=== PATIENT | female | born 1975 | race Caucasian/White ===

== ENCOUNTER 2018-06-01 13:46 | Emergency (ER) | payer OTHER, MEDICAID, SELFPAY ==
[2018-06-01 13:47] VITALS: BP 141/68; PULSE 76; RESP 18; TEMP 35.6; O2SAT 99; BMI 36.8
--- NOTE | 2018-06-01 14:06 | ED.VISSUMM ---
- ER Visit Summary Date of Service: 06/01/18 Chief Complaint: Bilateral lower quadrant and flank discomfort. History of Present Illness: The patient is a 42 F 3 of prior kidney stones, gestational diabetes but is currently not treated for diabetes and prior UTIs. She states since Tuesday she has had initially left lower quadrant now bilateral lower quadrant discomfort. She denies any nausea, vomiting or diarrhea. Her last menstrual period ended on May 23. She denies any fever. She denies any dysuria. She states she was seen in the urgent care earlier today he did a dip UA which showed blood but they did not feel it was infected and referred to the ER. Physical Examination: Middle-aged female no acute distress. Vital signs are stable and afebrile. H EENT exam unremarkable. Moist weeks membranes. Lungs clear to auscultation bilaterally. Heart regular rhythm no murmur. Abdomen soft. Nondistended. Normal bowel sounds. No peritoneal signs. Only very mild tenderness on both lower quadrants. No McBurney's point tenderness no Lozano sign. No signs of obstruction. No hernias or masses. Back nontender. Neurologically she is awake and alert. No focal motor deficits. She is moving all 4 extremities. Calves are without edema, cords or tenderness. Test Results: CBC normal white count 8. Chemistries normal. Gap of 8. Creatinine 1. UA negative. Serum test negative. CT abdomen and pelvis shows no acute abnormality. Diverticulosis noted. Normal appendix. Left renal calculi but no acute ureteral stones. Read by the radiologist and reviewed by me. Emergency Department Course and Treatment: Middle-aged female with lower quadrant abdominal pain. Multiple repeat exams unchanged. Treatment Plan: Discharged home. Follow-up with a primary care physician. Disposition: dc Impression: Bilateral lower quadrant abdominal pain of uncertain etiology This note was generated with [employer] dictation software. It may contain incorrect words, spelling, and punctuation that were not noted in review of the chart prior to signing ED Disposition - Plan for ED Patient: Chief Complaint: Abd Pain Referrals: Care Physician,No Primary [Primary Care Provider] -
[2018-06-01 14:25] LABS: Absolute Lymphocyte Count 1.88 X10^3/ul (0.83-4.51); Absolute Neutrophil Count 6.1 X10^3/uL (2.0-7.7); Basophil# 0.04 X10^3/uL; Basophil% 0.5 % (0-1); Eosinophil# 0.11 X10^3/uL; Eosinophils% 1.3 % (0-5); Hematocrit 39.2 % (37-47); Hemoglobin 12.9 g/dl (12.0-15.0); Lymphocyte # 1.88 X10^3/ul (4.0); Lymphocyte % 21.9 % (19-41); Mean Corp Hgb Conc 32.9 g/gl (32-36); Mean Corpuscular Hgb 29.1 pg (27.0-32.0); Mean Corpuscular Volume 88.5 fL (81-99); Mean Platelet Vol. 9.3 fl (6.2-12.0); Monocyte# 0.46 X10^3/uL; Monocyte% 5.4 % (0-10); Neutrophil # 6.06 X10^3/uL (2.7-7.7); Neutrophil % 70.6 % (47-70); POSITIVE COUNT NO; POSITIVE DIFFERENTIAL NO; POSITIVE MORPHOLOGY NO; Platelet Count 297 K/mm3 (150-450); RBC Distribution Width CV 13.4 % (11.6-14.6); RBC Distribution Width SD 42.6 fl (35.1-43.9); Red Blood Count 4.43 M/mm3 (4.2-5.4); White Blood Count 8.6 K/mm3 (4.4-11.0)
[2018-06-01 14:34] LABS: Color, Urine Yellow (Yellow); Glucose, Dipstick Normal (Normal); Ketone-Dipstick Negative (Negative); Leukocyte Esterase-Dipstick 25 /ul (Negative); Mucous, Urine 0 SEEN /hpf (<or=2+); Nitrite-Dipstick Negative (Negative); Occult Blood-Urine 10 /ul (Negative); Protein-Dipstick Negative (Negative); Red Blood Cells-Urine 0 SEEN /hpf (0-5); Urine Bilirubin Dipstick Negative (Negative); Urine Clarity Sl. Cloudy (Clear); Urine Urobilinogen 1 mg/dl (Normal)
[2018-06-01 14:37] LABS: Anion Gap 8 (5-15); BUN 11 mg/dL (7-18); BUN/Creat Ratio 10.8 RATIO (10-20); Calcium,Total 8.3 mg/dL (8.5-10.1); Chloride 103 mmol/L (98-107); Creatinine, Serum 1.02 mg/dL (0.55-1.02); EST Glomerular Filtration Rate 64 mL/min (>60); Est Glom Filt Rate - Afr Amer 77 mL/min (>60); Estimated Creatinine Clearance 60.65 ml/min; Glucose 124 mg/dL (74-106); Potassium 3.8 mmol/L (3.5-5.1); Sodium Level 138 mmol/L (136-145)
[2018-06-01 14:40] LABS: Bacteria RARE /hpf (None Seen); Squamous Epithelial Cells - UA 0-5 SEEN /hpf (5-10); White Blood Cells 0-5 SEEN /hpf (0-5)
[2018-06-01 14:42] LABS: Pregnancy, Serum, hCG Quali. NEGATIVE Negative (0-9 Nonpreg)
--- NOTE | 2018-06-01 15:18 | CT_ITS ---
STUDY: CT ABDOMEN AND PELVIS WITH CONTRAST REASON FOR EXAM: Female, 42 years old. Bilateral lower abdominal and back pain. Hematuria. History of kidney stones. RADIATION DOSAGE (If Supplied By Facility): CTDIvol = ( 17.78 ) mGy, DLP = ( 1154.85 ) mGycm TECHNIQUE: Transaxial images were obtained from the dome of the diaphragm to the symphysis pubis without oral contrast. 100mL ml of Isovue 300 contrast was administered. Sagittal and coronal images were reconstructed. Individualized dose optimization techniques were used for this CT. COMPARISON: None. FINDINGS: The visualized lung bases are unremarkable. The visualized portions of the heart are within normal limits. Normal liver. Normal gallbladder and extrahepatic biliary system. Normal spleen. Normal pancreas. Normal bilateral adrenal glands. Normal right kidney. There is a 2 mm nonobstructive calculus in the midpole calyx of the left kidney. 3.2 mm calculus in the lower pole calyx of the left kidney There is a small hiatal hernia. Normal small intestine. There are scattered colonic diverticula consistent with diverticulosis. The appendix is visualized and appears normal. Normal abdominal aorta. Normal inferior vena cava. There is borderline retroperitoneal lymphadenopathy with enlarged nodes no greater than 10mm in the short axis diameter. Normal urinary bladder. Follicles are seen in the left ovary. Normal abdominal wall. There are degenerative changes of the visualized lumbar spine. CT/Abdomen/Pelvis W IV Cont ONLY IMPRESSION: Nonobstructive 2 mm calculus in the midpole calyx of the left kidney as well as a 3.2 mm calculus in the lower pole calyx. Electronically Signed: Jah Reeves MD at 15:55 EST Tel [phone], Service support ,
--- NOTE | 2018-06-01 16:28 | ED.DEP ---
ED Disposition - Plan for ED Patient: Disposition: Home or Assisted Living Chief Complaint: Abd Pain Instructions: ED Abdominal Pain Unkn Cause Referrals: Vu Escobar MD [STAFF PHYSICIAN] - As Needed Additional Instructions: Follow-up with a local primary care physician. All your lab work was normal today including your urinalysis, blood work and CAT scan.
[2018-06-01 16:42] VITALS: BP 108/76; PULSE 72; RESP 16; O2SAT 98
== END 2018-06-01 16:43 | disposition home or self-care (01) ==
PROVIDERS: Emergency Provider Emergency Medicine
DX: R10.31 Right lower quadrant pain (principal); R10.32 Left lower quadrant pain; K57.90 Diverticulosis of intestine, part unspecified, without perforation or abscess without bleeding; N20.0 Calculus of kidney; Z87.442 Personal history of urinary calculi; Z87.440 Personal history of urinary (tract) infections; Z86.32 Personal history of gestational diabetes
CPT/HCPCS: 74177; 80048; 81001; 84703; 85025; 99284; J7030; Q9967; A4216

== ENCOUNTER 2019-05-24 15:15 | Emergency (ER) | payer OTHER, SELFPAY ==
[2019-05-24 15:17] VITALS: BP 153/83; PULSE 81; RESP 16; TEMP 36; O2SAT 100; BMI 35.4
--- NOTE | 2019-05-24 15:33 | RAD_ITS ---
STUDY: X-RAY - UNILATERAL RIBS ( RIGHT ) WITH CHEST REASON FOR EXAM: Female, 43 years old. Anterior rib pain with no history of trauma. TECHNIQUE - RIBS: 3 view(s) of the ribs. TECHNIQUE - CHEST: 1 view COMPARISON: None. FINDINGS - RIBS: Normal visualized ribs without a demonstrated fracture. FINDINGS - CHEST: The lungs are clear and expanded. There is no demonstrated pleural abnormality. Normal size heart. Normal mediastinum and aylin. Normal visualized pulmonary arteries. Normal visualized aortic arch and descending thoracic aorta. Normal visualized thoracic spine. Normal visualized ribs, clavicles, and shoulders. There is no demonstrated abnormality of the visualized soft tissue structures of the upper abdomen. RAD/Ribs Uni Min 3V w/PA Chest IMPRESSION: RIBS: Normal x-ray examination of the ribs. CHEST: Normal x-ray examination of the chest. Electronically Signed: Bethany Marsh MD at 16:54 EST , Service support ,
--- NOTE | 2019-05-24 15:34 | ED.VIS.CHEST ---
History of Present Illness Chief Complaint: Abd Pain Informant: Patient Onset: Weeks - 2 Timing: Intermittent Quality: Dull Location: Right Chest Current Severity: Moderate Maximum Severity: Moderate Worsened By: Movement of Torso - nicolas bending over, Breathing, Coughing Relieved By: Rest - and breathing easy Associated Symptoms: Negative for: Nausea, Vomiting, Diaphoresis, Dyspnea, Cough, Fever, Lightheadedness, Palpitations Narrative: No changes with food. States she feels it is on her right lower chest wall that is sore. Has been off-and-on for the past couple weeks, but for the past several days has been constant discomfort. She has tried some Tylenol without any major difference. She denies any recent travel or surgeries. No history of DVT or PE. No recent leg pain or swelling. No history of clotting disorders in herself or family members that she knows of. No fevers. No recent cough. Cannot recall doing any heavy lifting prior to the onset, or any injuries. 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 Denies any abdominal pain, nausea, vomiting, bright red blood per rectum, melena. She has had no hemoptysis. She is a non-smoker and takes no control pills, or any other medications. Prior Similar Symptoms: No Past Medical History - Allergies and Home Meds Allergies/Adverse Reactions: Allergies iodine Allergy (Verified 06/01/18 13:47) Food Allergy shellfish derived Allergy (Verified 06/01/18 13:47) Hives Primary Care Physician: Donald Medina MD [STAFF PHYSICIAN] - 1 Week if not improving Past Medical History: None Surgical History: - - C-sections, no other surgeries Lives: With Family Smoking Status: Former smoker Drugs: None - Family History Maternal Additional Family History: No known family history of clotting disorders or DVT/PE Review of Systems General: Denies: Chills, Fever, Sweats Eyes: Denies: Visual changes - bilaterally, Diplopia ENT: Denies: Rhinorrhea, Sore throat Cardiovascular: Reports: Chest pain. Denies: Palpitations Respiratory: Denies: Dyspnea, Cough, Dyspnea on exertion Gastrointestinal: Denies: Abdominal pain, Nausea, Vomiting, Diarrhea, Melena, Hematochezia Genitourinary: Denies: Dysuria, Hematuria, Frequency Musculoskeletal: Denies: Back pain, Swelling, Extremity Pain Skin: Denies: Rash, Wounds Neurological: Denies: Headache, Weakness, Numbness Physical Exam Vital Signs/Narrative: Vital Signs Temp Pulse Resp BP Pulse Ox 05/24/19 15:17 96.8 F L 81 16 153/83 H 100 Inital Vital Signs reviewed: Yes General: Well nourished, Well developed, No Acute Distress Head: Normocephalic, Atraumatic Eyes: Perrl, EOMI ENT: Moist mucous membranes, No rhinorrhea Neck: Supple, Nontender Cardiovascular: Regular rate, Regular rhythm, No murmurs Respiratory: No distress, CTA bilaterally, Chest tenderness - right anterior rib approx #7 tender to palp, reproduces the pt's pain; no crepitance. equal BS bilat. Abdomen: Soft, Nontender, Nondistended, Normal bowel sounds, No masses. Negative for: Pulsatile mass, Lozano's sign Back: Nontender, Normal Inspection Extremities: Nontender, No edema. Negative for: Calf Tenderness Skin: Normal color, No rash, No Trauma Neurological: Alert, Oriented x3, Cranial nerves II-XII grossly intact, Normal Strength, Normal Sensation, Normal Gait Psychological: Normal affect, Normal Mood Diagnostic/Tx/Re-eval Impressions Ribs w/Chest X-Ray 05/24/19 15:33 IMPRESSION: RIBS: Normal x-ray examination of the ribs. CHEST: Normal x-ray examination of the chest. Electronically Signed: Bethany Marsh MD at 16:54 EST , Service support , 05/24/19 15:33 Ribs Uni Min 3V w/PA Chest [RAD] Stat Laboratory Results 05/24/19 05/24/19 15:40 15:40 WBC 9.6 RBC 4.95 Hgb 14.4 Hct 43.7 MCV 88.3 MCH 29.1 MCHC 33.0 RDW Std Deviation 43.0 RDW Coeff of Alejandra 13.3 Plt Count 328 MPV 9.4 Immature Gran % (Auto) 0.300 Neut % (Auto) 67.4 Lymph % (Auto) 24.9 Faulkner % (Auto) 4.5 Eos % (Auto) 2.2 Baso % (Auto) 0.7 Absolute Neuts (auto) 6.5 Absolute Lymphs (auto) 2.39 Nucleated RBC % 0 Sodium 138 Potassium 3.9 Chloride 106 Carbon Dioxide 25.0 Anion Gap 7 BUN 16 Creatinine 0.86 Estim Creat Clear Calc 71.21 Est GFR (MDRD) Af Amer 94 Est GFR (MDRD) Non-Af 77 BUN/Creatinine Ratio 18.6 Glucose 132 H Calcium 9.1 Treatment: Toradol IV Repeat Eval: improved - Medical Decision Making PERC score is 0, so I do not think she needs further work-up for PE. Furthermore, her symptoms are reproducible on palpation and more consistent with a chest wall etiology. Chest x-ray and ribs series is unremarkable, rest of her work-up was unremarkable as well. She is better after Toradol. At this time I recommend supportive care with NSAIDs and follow-up, returning if she is dyspneic or she develops other symptoms. She is comfortable with that plan. ED Disposition - Plan for ED Patient: Disposition: Home or Assisted Living Diagnosis: Right-sided chest wall pain Instructions: CHEST WALL PAIN, Costochondritis, Chest Wall Strain Prescriptions: Naproxen [Naprosyn] 500 mg PO BID PRN #20 tab Prescription Printed Referrals: Donald Medina MD [STAFF PHYSICIAN] - 1 Week if not improving
[2019-05-24 15:53] LABS: Absolute Lymphocyte Count 2.39 X10^3/uL (0.83-4.51); Absolute Neutrophil Count 6.5 X10^3/uL (2.0-7.7); Basophil# 0.07 X10^3/uL; Basophil% 0.7 % (0-1); Eosinophil# 0.21 X10^3/uL; Eosinophils% 2.2 % (0-5); Hematocrit 43.7 % (37-47); Hemoglobin 14.4 g/dL (12.0-15.0); Lymphocyte # 2.39 X10^3/ul (4.0); Lymphocyte % 24.9 % (19-41); Mean Corpuscular Hgb 29.1 pg (27.0-32.0); Mean Corpuscular Volume 88.3 fL (81-99); Mean Platelet Vol. 9.4 fl (6.2-12.0); Monocyte# 0.43 X10^3/uL; Monocyte% 4.5 % (0-10); NRBC Flagged by Analyzer 0 % (0-5); Neutrophil # 6.46 X10^3/uL (2.7-7.7); Neutrophil % 67.4 % (47-70); Platelet Count 328 K/mm3 (150-450); RBC Distribution Width CV 13.3 % (11.6-14.6); Red Blood Count 4.95 M/mm3 (4.2-5.4); White Blood Count 9.6 K/mm3 (4.4-11.0)
[2019-05-24 16:08] LABS: Anion Gap 7 (5-15); BUN 16 mg/dL (7-18); BUN/Creat Ratio 18.6 RATIO (10-20); Calcium,Total 9.1 mg/dL (8.5-10.1); Chloride 106 mmol/L (98-107); Creatinine, Serum 0.86 mg/dL (0.55-1.02); EST Glomerular Filtration Rate 77 mL/min (>60); Est Glom Filt Rate - Afr Amer 94 mL/min (>60); Estimated Creatinine Clearance 71.21 ml/min; Glucose 132 mg/dL (74-106); Potassium 3.9 mmol/L (3.5-5.1); Sodium Level 138 mmol/L (136-145)
[2019-05-24] MEDS: Ketorolac 30 MG/ML Syringe IV (16:32)
[2019-05-24 17:32] VITALS: BP 124/74; PULSE 70; RESP 16; O2SAT 100
== END 2019-05-24 17:36 | disposition home or self-care (01) ==
PROVIDERS: Emergency Provider Emergency Medicine
DX: R07.89 Other chest pain (principal); Z87.891 Personal history of nicotine dependence
CPT/HCPCS: 71101; 80048; 85025; 96374; 99283; A4216

== ENCOUNTER 2020-07-26 12:38 | Emergency (ER) | payer MEDICAID, SELFPAY ==
[2020-07-26 12:39] VITALS: BP 121/77; PULSE 89; RESP 18; TEMP 35.9; O2SAT 99; BMI 35.4
--- NOTE | 2020-07-26 13:09 | ED.DCSUM_ITS ---
- ER Visit Summary Date of Service: 07/26/20 Chief Complaint: Right flank pain History of Present Illness: The patient is a 44 F who presents with right flank pain that has been constant for the past week. Patient states the pain is sharp. Patient states the pain is over the right flank and right upper qu adrant. Patient states the pain is worse with movement. Patient denies any nausea or vomiting. Patient denies any diarrhea, melena, or hematochezia. Patient denies any dysuria or hematuria. Patient states her last menstrual period was approximately 3 weeks ago. Patient denies any fevers or chills. Physical Examination: Vital signs are stable. Patient is afebrile. Patient is in no acute distress. Oral mucosa is pink and moist. Neck is supple. Trachea is midline. There is no JVD noted. Heart was regular rate and rhythm. Lungs are clear and equal bilaterally. Abdomen is soft. Bowel sounds are normal. There is mild right upper quadrant and right CVA tenderness. There is no rebound or guarding noted. Skin is warm dry. Cranial nerves II through XII are intact. There are no focal motor or sensory deficits noted. Extremities are intact. There is no calf tenderness or edema. Test Results: CBC was within normal limits. Comprehensive metabolic profile showed an elevated glucose of 282. The remainder was within normal limits. Urinalysis shows glucose was 1000. There is no evidence of urinary tract infection. Serum hCG was negative. CT scan of the abdomen and pelvis was obtained. There is no ureteral calculus noted. There is no acute process. This was interpreted by the radiologist and reviewed by myself. Emergency Department Course and Treatment: Patient was given IV fluids, morphine, and Zofran. Patient was advised of her findings. Patient was instructed to monitor her sugars. Patient was instructed to follow-up with her primary care physician in 3 to 5 days. Patient was advised that she may need to be started on oral hypoglycemics but this will be up to her primary care physician. Patient understood and was agreeable with the plan. All questions were answered. Disposition: Discharge home Impression: Diabetes This note was generated with [employer]ation software. It may contain incorrect words, spelling, and punctuation that were not noted in review of the chart prior to signing ED Disposition - Plan for ED Patient: Disposition: Home or Assisted Living Diagnosis: Hyperglycemia due to diabetes mellitus Instructions: ED Diet: Diabetes, ED Diabetes- Overview Referrals: Edmundo Kendall MD [STAFF PHYSICIAN] - 3-5 Days
[2020-07-26 13:13] LABS: Absolute Lymphocyte Count 2.32 X10^3/uL (0.83-4.51); Absolute Neutrophil Count 5.3 X10^3/uL (2.0-7.7); Basophil# 0.04 X10^3/uL; Basophil% 0.5 % (0-1); Eosinophil# 0.14 X10^3/uL; Eosinophils% 1.7 % (0-5); Hemoglobin 13.9 g/dL (12.0-15.0); Lymphocyte # 2.32 X10^3/ul (4.0); Lymphocyte % 27.9 % (19-41); Mean Corp Hgb Conc 32.3 g/dL (32-36); Mean Corpuscular Volume 86.5 fL (81-99); Mean Platelet Vol. 9.4 fl (6.2-12.0); Monocyte# 0.47 X10^3/uL; Monocyte% 5.7 % (0-10); NRBC Flagged by Analyzer 0 % (0-5); Neutrophil # 5.31 X10^3/uL (2.7-7.7); Neutrophil % 63.8 % (47-70); Platelet Count 316 K/mm3 (150-450); RBC Distribution Width SD 40.9 fl (35.1-43.9); Red Blood Count 4.97 M/mm3 (4.2-5.4); White Blood Count 8.3 K/mm3 (4.4-11.0)
[2020-07-26 13:27] LABS: ALB/GLOB Ratio 1.1 RATIO (0.9-2.4); AST(SGOT) 11 U/L (15-37); Alanine Aminotransfer ALT/SGPT 18 U/L (13-56); Albumin, Serum 3.7 g/dL (3.2-5.0); Alkaline Phosphatase 132 U/L (45-117); Anion Gap 6 (5-15); BUN 12 mg/dL (7-18); BUN/Creat Ratio 11.9 RATIO (10-20); Calcium,Total 8.6 mg/dL (8.5-10.1); Chloride 104 mmol/L (98-107); Creatinine, Serum 1.01 mg/dL (0.55-1.02); EST Glomerular Filtration Rate 64 mL/min (>60); Est Glom Filt Rate - Afr Amer 77 mL/min (>60); Estimated Creatinine Clearance 60.02 ml/min; Globulin 3.5 g/dL (2.2-4.2); Glucose 282 mg/dL (74-106); Lipase 126 U/L (73-393); Protein, Total 7.2 g/dL (6.4-8.2); Sodium Level 135 mmol/L (136-145)
[2020-07-26 13:28] LABS: Color, Urine Yellow (Yellow); Glucose, Dipstick 1000 mg/dl (Normal); Ketone-Dipstick 5 mg/dl (Negative); Leukocyte Esterase-Dipstick Negative /ul (Negative); Nitrite-Dipstick Negative (Negative); Occult Blood-Urine Negative /ul (Negative); Protein-Dipstick Negative (Negative); Specific Gravity, Urine 1.025 (1.002-1.030); Urine Bilirubin Dipstick Negative (Negative); Urine Clarity Sl. Cloudy (Clear); Urine Urobilinogen Normal (Normal)
[2020-07-26 13:29] LABS: Bacteria 0 SEEN /hpf (None Seen); Mucous, Urine 0 SEEN /hpf (<or=2+); Red Blood Cells-Urine 0 SEEN /hpf (0-5); White Blood Cells 0 SEEN /hpf (0-5)
[2020-07-26 13:33] LABS: Squamous Epithelial Cells - UA 0-5 SEEN /hpf (5-10)
[2020-07-26 13:42] LABS: Internal QC Validated? YES +Cl - CLEAR BKGD
[2020-07-26 13:43] LABS: Pregnancy, Serum, hCG Quali. NEGATIVE Negative
[2020-07-26] MEDS: 0.9% Normal Saline 1,000 ML 1000 ML IV (13:57)
[2020-07-26] MEDS: Morphine 4 MG/ML Syringe IV (13:57)
[2020-07-26] MEDS: Ondansetron 4 MG/2 ML Vial IV (13:58)
--- NOTE | 2020-07-26 14:04 | CT_ITS ---
STUDY: CT ABDOMEN AND PELVIS WITHOUT CONTRAST REASON FOR EXAM: Female, 44 years old. RIGHT SIDED ABDOMINAL PAIN X 1 WEEK RADIATION DOSAGE (If Supplied By Facility): CTDIvol = ( 17.59 ) mGy, DLP = ( 940.65 ) mGycm TECHNIQUE: Transaxial images were obtained from the dome of the diaphragm to the symphysis pubis without oral contrast, and without intravenous contrast. Sagittal and coronal images were reconstructed. Individualized dose optimization techniques were used for this CT. COMPARISON: 06/01/2018 FINDINGS: The visualized lung bases are unremarkable. The visualized portions of the heart are within normal limits. Normal liver. The gallbladder is contracted. Normal spleen. Normal pancreas. Normal bilateral adrenal glands. No hydronephrosis. Nonobstructing punctate calculus of the left kidney on image 63 of series 2 is stable. Normal visualized stomach. Normal small intestine. Normal colon. The appendix is visualized and appears normal. Normal abdominal aorta. Normal inferior vena cava. Normal retroperitoneum. Normal urinary bladder. There are follicles of the right ovary. No pelvic free fluid or inflammation. Normal abdominal wall. Stable degenerative changes of the lumbar spine. CT/Abdomen/Pelvis without Cont IMPRESSION: No hydronephrosis or ureteral calculi. Stable punctate left renal calculus. Electronically Signed: Olaf Mojica MD ([place]) at 14:31 EST , Service support ,
[2020-07-26 15:16] VITALS: BP 128/62; PULSE 84; RESP 16; O2SAT 99
== END 2020-07-26 15:18 | disposition home or self-care (01) ==
PROVIDERS: Emergency Provider Emergency Medicine
DX: R10.11 Right upper quadrant pain (principal); E11.65 Type 2 diabetes mellitus with hyperglycemia
CPT/HCPCS: 74176; 80048; 80053; 81001; 83690; 84703; 85025; 96361; 96374; 96375; 99283; J7030; J2405

== ENCOUNTER 2021-01-15 12:40 | Emergency (ER) | payer MEDICAID, SELFPAY ==
[2021-01-15 12:40] VITALS: BP 123/78; PULSE 76; RESP 14; TEMP 36.6; O2SAT 100; BMI 35.1
--- NOTE | 2021-01-15 13:18 | RAD_ITS ---
STUDY: X-RAY - LEFT SHOULDER REASON FOR EXAM: Left shoulder pain for months, no specific injury. TECHNIQUE: 4 view(s) of the shoulder. COMPARISON: None. FINDINGS: Normal glenohumeral articulation. There is mild acromioclavicular arthrosis. Normal acromion. There are 2 small radiolucencies in the scapula representing incidental suprascapular foramina. Normal humeral head and visualized proximal humerus. The soft tissue structures are unremarkable. Normal visualized pulmonary apex. RAD/Shoulder min 2 Views IMPRESSION: Mild acromioclavicular arthrosis. Electronically Signed: Devonte Pedraza MD at 13:55 EDT Tel , Service support ,
--- NOTE | 2021-01-15 13:18 | EX.ED.UPPERE ---
HPI History of Present Illness Chief Complaint: Upper Extremity Injury Detail of Chief Complaint: Atraumatic left shoulder pain. 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 Says has been quite busy lately. For last month she has had aching in her left shoulder. Worse and constant over the last week. Worse with movement. Denies any trauma. No prior shoulder surgery. She is right-hand dominant and this is her left shoulder. She denies any fever, chills, redness or swelling. Prior similar symptoms: Yes Recent Illness/Hospitalization: No PFSH PFSH Medical History Diabetes Home Medications metaxalone [Skelaxin] 800 mg PO TID PRN 7 Days #20 tab 01/15/21 [Rx Last Taken Unknown] Allergy/AdvReac Type Severity Reaction Status Date / Time iodine Allergy Food Verified 01/15/21 12:42 Allergy shellfish derived Allergy Hives Verified 01/15/21 12:42 Social History Smoking Status: Never smoker ROS ROS ED ROS Narrative Denies any recent illness. Review of Systems ROS Unobtainable: Denies due to encephalopathy Constitutional Constitutional ED: Denies chills or frequent falls Eyes Eyes: Denies change in vision ENT ENT ED: Denies ear pain or sore throat Cardiovascular Cardiovascular: Denies chest pain Respiratory/Chest Respiratory/Chest: Denies cough or dyspnea Gastrointestinal Gastrointestinal: Denies abdominal pain, constipation, diarrhea, nausea or vomiting Genitourinary Genitourinary ED: Denies dysuria or hematuria Musculoskeletal Musculoskeletal: Reports back pain and neck pain; Denies myalgias Integumentary Denies rash Neurologic Neurologic: Denies headache(s) Psychiatric Psychiatric: Denies depression Endocrine Endocrinology: Denies polyuria Hematologic/Lymphatic Hematologic/Lymphatic: Denies easy bruising Allergic/Immunologic Allergic/Immunologic ED: Denies urticaria EXAM Physical Exam Narrative Exam Narrative: Middle-aged female no acute distress. Vital signs stable afebrile. Has tenderness of the soft tissue around the left shoulder. Upper back and lateral left neck. Consistent with myofascial strain. There is no redness or warmth. She has AB and adduction of the shoulder internal and external rotation and flexion extension. No bony deformity. No signs of infection. Const Vital Signs: 01/15/21 12:40 Temperature 97.9 F Temperature Source Temporal Pulse Rate 76 Respiratory Rate 14 Blood Pressure 123/78 H Blood Pressure Mean 93 Pulse Ox 100 Oxygen Delivery Method Room Air Positive well nourished and well developed General Appearance ED: well developed HEENT Denies moist mucous membranes normocephalic and atraumatic; Negative for trauma or tenderness Eyes PERRL and EOMs intact bilaterally Neck full ROM and supple General: tenderness Chest Wall inspection of chest normal and palpation of chest normal Resp normal respiratory effort and clear to auscultation bilaterally Cardio regular rate, regular rhythm, S1 normal heart sound, S2 normal heart sound and no murmurs Rate: Negative for bradycardia or tachycardic GI non-tender and non-distended Auscultation: normoactive bowel sounds Palpation: soft; Negative for tender or guarding Back/Spine no CVA tenderness Cervical Spine: Negative for cervical spine tenderness Thoracic Spine / Upper Back: Negative for thoracic spinal tenderness Extremity normal to inspection and full ROM Extremity Narrative: Tenderness and soft tissue left shoulder consistent myofascial strain. Normal range of motion. No signs of rotator cuff tear. No swelling or redness. No bony deformity. General Extremety ED: Negative for edema General Extremity: Negative for edema Neuro oriented x3 and CN's II-XII intact bilaterally Sensorium / Orientation: alert, oriented to person and oriented to place Motor Exam: strength 5/5 throughout Psych mental status grossly normal Skin Rashes: no rashes MDM MDM MDM Narrative Medical decision making narrative: History and exam are consistent with myofascial strain with her type of work and overuse. She did not waiting for pain. X-ray being obtained. She will be treated with muscle relaxants and anti-inflammatories if she is amenable with that plan. History and exam are consistent with myofascial strain. X-rays basically unremarkable. Patiently placed on anti-inflammatories and muscle relaxant. Radiography Diagnostic Testing: Left shoulder x-ray 2 views interpreted by myself and the radiologist shows chronic changes no acute process. Mild acromioclavicular arthrosis per the radiologist. No significant degenerative changes. I did go over the x-ray with the patient. Discharge Plan Triage Chief Complaint: Upper Extremity Injury ED Provider: Sebastián Watkins Dx/Rx/DC Orders Clinical Impression: Muscle strain of left shoulder Instructions: ED Muscle Strain, Extremity Prescriptions: New metaxalone [Skelaxin] 800 mg tablet 800 mg PO TID PRN (Reason: muscle pain) 7 Days Qty: 20 RF: 0 Primary Care Provider: Care Physician,No Primary Referrals: Vu Escobar MD [STAFF PHYSICIAN] - 1 Week if not improving Care Physician,No Primary [Primary Care Provider] - Activity Restrictions/Additional Instructions: You have mild muscle strain of your shoulder and back due to overuse due to your work. Motrin for pain and inflammation or naproxen. Hot shower to relax the muscles warm bath and massage. Ice to decrease inflammation. Skelaxin as needed for muscle relaxation. Tell the pharmacy to fill the generic version of the tendon to be much cheaper. Disposition Disposition: Home, Self Care
[2021-01-15 14:43] VITALS: RESP 16
== END 2021-01-15 14:43 | disposition home or self-care (01) ==
PROVIDERS: Emergency Provider Emergency Medicine
DX: S46.912A Strain of unspecified muscle, fascia and tendon at shoulder and upper arm level, left arm, initial encounter (principal); M19.012 Primary osteoarthritis, left shoulder; X58.XXXA Exposure to other specified factors, initial encounter; Y93.9 Activity, unspecified; Y92.9 Unspecified place or not applicable; Y99.9 Unspecified external cause status; E11.9 Type 2 diabetes mellitus without complications
CPT/HCPCS: 73030; 99282

== ENCOUNTER 2021-06-22 15:37 | Emergency (ER) | payer MEDICAID, SELFPAY ==
[2021-06-22 15:37] VITALS: BP 126/75; PULSE 86; RESP 18; TEMP 35.9; O2SAT 99; BMI 33.6
--- NOTE | 2021-06-22 16:55 | EX.ED.DYSGE1 ---
HPI History of Present Illness Chief Complaint: Flank Pain Informant: patient Narrative Narrative: Patient's been having left flank pain off and on for at least a couple weeks. But it seems to have increased in the last few days. It is somewhat motion related down by her left buttock and hip. But it also comes and goes without motion. She states it seems to be moving up. But she has no cough or shortness of breath. Mostly his left flank and wraps around to the left groin. This is typical when she has had either UTIs or kidney stones. Her urine was a little darker and she is going slightly more frequent but there is no dysuria. She has had no fevers or chills. She has had nausea when the pain increases but not at other times. She has been eating and drinking fine. Past medical history includes kidney stones and recent diagnosis of hyperglycemia. She has not yet been able to follow-up with a physician to get medicine or evaluations. No chronic medications Allergy to iodine and shellfish No recent surgeries Non-smoker [facility] Medical History Diabetes Home Medications metaxalone [Skelaxin] 800 mg PO TID PRN 7 Days #20 tab 01/15/21 [Rx Last Taken Unknown] naproxen 500 mg PO BID #14 tab 06/22/21 [Rx Last Taken Unknown] Allergy/AdvReac Type Severity Reaction Status Date / Time iodine Allergy Food Verified 06/22/21 15:39 Allergy shellfish derived Allergy Hives Verified 06/22/21 15:39 Social History Smoking Status: Never smoker ROS [facility] ED Constitutional Constitutional ED: Denies chills or fever(s) Eyes Eyes: Denies change in vision ENT ENT ED: Denies rhinorrhea Cardiovascular Cardiovascular: Denies chest pain Respiratory/Chest Respiratory/Chest: Denies cough, dyspnea, dyspnea on exertion or sputum Gastrointestinal Gastrointestinal: Reports abdominal pain and nausea; Denies vomiting Genitourinary Genitourinary ED: Reports urinary frequency and other Details: See history of present illness. ; Denies dysuria or hematuria Musculoskeletal Musculoskeletal: Reports back pain Integumentary Denies rash Neurologic Neurologic: Denies headache(s), paresthesias or weakness Endocrine Endocrinology: Reports other Details: Denies polyuria, polydipsia or blurry vision. ; Denies polydipsia or polyuria Allergic/Immunologic Allergic/Immunologic ED: Denies mouth swelling or urticaria EXAM Physical Exam Const Vital Signs: 06/22/21 15:37 06/22/21 17:16 Temperature 96.7 F L Temperature Source Temporal Pulse Rate 86 Respiratory Rate 18 Respiratory Effort Normal Respiratory Pattern Normal Blood Pressure 126/75 H Blood Pressure Mean 92 Pulse Ox 99 Oxygen Delivery Method Room Air Positive well nourished and well developed General Appearance ED: well developed and NAD HEENT Reports moist mucous membranes Eyes General Eye ED: Yes pale conjunctiva Neck no lymphadenopathy Chest Wall inspection of chest normal Resp normal respiratory effort and clear to auscultation bilaterally Effort and Inspection: Negative for pain with movement Auscultation: Negative for rales, rhonchi or wheezes Cardio regular rate and regular rhythm GI normal to inspection, nondistended, normoactive bowel sounds, non-tender and non-distended Palpation: soft Back/Spine Back/Spine Narrative: Very mild left CVA tenderness. But she also has some tenderness in the left paraspinals with soft palpation. Extremity normal to inspection General Extremety ED: Negative for edema or tenderness General Extremity: Negative for edema Neuro oriented x3 Sensorium / Orientation: alert Psych mental status grossly normal Skin no rashes or lesions noted MDM MDM MDM Narrative Medical decision making narrative: Patient CT shows no acute process. Her CBC, electrolytes and urine were normal. Glucose was minimally elevated at 169 but this is less than her last visit. I do not think this requires acute treatment. It does need follow-up. Patient does have significant musculoskeletal component. We will write for nonsteroidals. We discussed reasons to return that include worsening pain, vomiting, fevers or other concerns. Lab Data Attestation: I reviewed the patient's lab results. Labs: Laboratory Results - last 24 hr 06/22/21 06/22/21 06/22/21 16:28 16:28 17:16 WBC 7.7 RBC 4.72 Hgb 13.7 Hct 41.7 MCV 88.3 MCH 29.0 MCHC 32.9 RDW Std Deviation 42.1 RDW Coeff of Alejandra 12.9 Plt Count 325 MPV 9.7 Immature Gran % (Auto) 0.400 Neut % (Auto) 53.7 Lymph % (Auto) 36.7 [place] % (Auto) 5.5 Eos % (Auto) 2.9 Baso % (Auto) 0.8 Absolute Neuts (auto) 4.1 Absolute Lymphs (auto) 2.81 Nucleated RBC % 0 Sodium 138 Potassium 3.7 Chloride 104 Carbon Dioxide 27.0 Anion Gap 7 BUN 15 Creatinine 0.78 Estim Creat Clear Calc 76.93 Est GFR (MDRD) Af Amer 103 Est GFR (MDRD) Non-Af 85 BUN/Creatinine Ratio 19.1 Glucose 169 H Calcium 9.4 Urine Color Yellow Urine Clarity Clear Urine pH 5.0 Ur Specific [place] 1.025 Urine Protein 15 H Urine Glucose (UA) 50 H Urine Ketones 50 H Urine Occult Blood Negative Urine Nitrite Negative Urine Bilirubin Negative Urine Urobilinogen Normal Ur Leukocyte Esterase Negative Urine RBC 0 SEEN Urine WBC 0 SEEN Ur Squamous Epith Cells 0-5 SEEN Urine Bacteria 1+ Urine Mucus 0 SEEN Urine Test Negative Radiography Diagnostic Testing: Clinical Impression(s) from Imaging Studies Abdomen/Pelvis CT 06/22/21 17:52 IMPRESSION: No suspicious solid organ abnormality, stable punctate nonobstructing left renal stone No free intraperitoneal fluid, air, or suspicious adenopathy Normal appendix visualized Electronically Signed: Arsalan Landeros MD at 18:23 EST , Service support , Discharge Plan Triage Chief Complaint: Flank Pain ED Provider: Delonte Mae Dx/Rx/DC Orders Clinical Impression: Acute left flank pain Instructions: ED Flank Pain, Uncertain Cause Prescriptions: New naproxen 500 MG tablet 500 mg PO BID Qty: 14 RF: 0 No Action metaxalone [Skelaxin] 800 mg tablet 800 mg PO TID PRN (Reason: muscle pain) 7 Days Qty: 20 RF: 0 Primary Care Provider: Care Physician,No Primary Referrals: Fast,Marla, DO [NON-STAFF] - 1 Week if not improving Care Physician,No Primary [Primary Care Provider] - Disposition Disposition: Home, Self Care
[2021-06-22] MEDS: Ketorolac 15 MG/ML Vial IV (17:11)
[2021-06-22] MEDS: 0.9% Normal Saline 1,000 ML 1000 ML IV (17:11)
[2021-06-22] MEDS: Ondansetron 4 MG/2 ML Vial IV (17:11)
[2021-06-22 17:21] LABS: Absolute Lymphocyte Count 2.81 X10^3/uL (0.83-4.51); Absolute Neutrophil Count 4.1 X10^3/uL (2.0-7.7); Basophil# 0.06 X10^3/uL; Basophil% 0.8 % (0-1); Eosinophil# 0.22 X10^3/uL; Eosinophils% 2.9 % (0-5); Hematocrit 41.7 % (37-47); Hemoglobin 13.7 g/dL (12.0-15.0); Lymphocyte # 2.81 X10^3/ul (0.83-4.51); Lymphocyte % 36.7 % (19-41); Mean Corp Hgb Conc 32.9 g/dL (32-36); Mean Corpuscular Volume 88.3 fL (81-99); Mean Platelet Vol. 9.7 fl (6.2-12.0); Monocyte# 0.42 X10^3/uL; Monocyte% 5.5 % (0-10); NRBC Flagged by Analyzer 0 % (0-5); Neutrophil # 4.11 X10^3/uL (2.7-7.7); Neutrophil % 53.7 % (47-70); Platelet Count 325 K/mm3 (150-450); RBC Distribution Width CV 12.9 % (11.6-14.6); RBC Distribution Width SD 42.1 fl (35.1-43.9); Red Blood Count 4.72 M/mm3 (4.2-5.4); White Blood Count 7.7 K/mm3 (4.4-11.0)
[2021-06-22 17:23] LABS: Mucous, Urine 0 SEEN /hpf (<or=2+); Red Blood Cells-Urine 0 SEEN /hpf (0-5); White Blood Cells 0 SEEN /hpf (0-5)
[2021-06-22 17:28] LABS: Color, Urine Yellow (Yellow); Glucose, Dipstick 50 mg/dl (Normal); Ketone-Dipstick 50 mg/dl (Negative); Leukocyte Esterase-Dipstick Negative /ul (Negative); Nitrite-Dipstick Negative (Negative); Occult Blood-Urine Negative /ul (Negative); Protein-Dipstick 15 mg/dl (Negative); Specific Gravity, Urine 1.025 (1.002-1.030); Urine Bilirubin Dipstick Negative (Negative); Urine Clarity Clear (Clear); Urine Urobilinogen Normal (Normal)
[2021-06-22 17:33] LABS: Anion Gap 7 (5-15); BUN 15 mg/dL (7-18); BUN/Creat Ratio 19.1 RATIO (10-20); Calcium,Total 9.4 mg/dL (8.5-10.1); Chloride 104 mmol/L (98-107); Creatinine, Serum 0.78 mg/dL (0.55-1.02); EST Glomerular Filtration Rate 85 mL/min (>60); Est Glom Filt Rate - Afr Amer 103 mL/min (>60); Estimated Creatinine Clearance 76.93 ml/min; Glucose 169 mg/dL (74-106); Potassium 3.7 mmol/L (3.5-5.1); Sodium Level 138 mmol/L (136-145)
[2021-06-22 17:40] LABS: Bacteria 1+ /hpf (None Seen); Internal QC Validated? YES +Cl - CLEAR BKGD; Pregnancy, Urine Negative Negative; Squamous Epithelial Cells - UA 0-5 SEEN /hpf (5-10)
--- NOTE | 2021-06-22 17:52 | CT_ITS ---
STUDY: CT ABDOMEN AND PELVIS WITHOUT CONTRAST REASON FOR EXAM: Female, 45 years old. Left flank pain RADIATION DOSAGE (If Supplied By Facility): CTDIvol = ( 13.42 ) mGy, DLP = ( 700.67 ) mGycm TECHNIQUE: Transaxial images were obtained from the dome of the diaphragm to the symphysis pubis without oral contrast, and without intravenous contrast. Sagittal and coronal images were reconstructed. Individualized dose optimization techniques were used for this CT. COMPARISON: 07/26/2020 FINDINGS: The visualized lung bases are unremarkable. The visualized portions of the heart are within normal limits. Normal liver. Normal gallbladder and extrahepatic biliary system. Normal spleen. Normal pancreas. Normal bilateral adrenal glands. No obstructive uropathy or suspicious solid renal lesion, stable punctate nonobstructing stone in the upper pole of the left kidney. Normal visualized stomach. Normal small intestine. Normal colon. The appendix is visualized and appears normal. Appendix best seen on coronal recon image 59 Normal abdominal aorta. Normal inferior vena cava. Normal retroperitoneum. Normal urinary bladder. Normal visualized uterus. No suspicious adnexal mass or free fluid Normal abdominal wall. Normal osseous structures. CT/Abdomen/Pelvis without Cont IMPRESSION: No suspicious solid organ abnormality, stable punctate nonobstructing left renal stone No free intraperitoneal fluid, air, or suspicious adenopathy Normal appendix visualized Electronically Signed: Arsalan Landeros MD at 18:23 EST , Service support ,
[2021-06-22 19:27] VITALS: BP 130/78; PULSE 69; RESP 16; O2SAT 99
== END 2021-06-22 19:45 | disposition home or self-care (01) ==
PROVIDERS: Emergency Provider Emergency Medicine
DX: R10.9 Unspecified abdominal pain (principal); R11.0 Nausea; E11.9 Type 2 diabetes mellitus without complications; Z79.1 Long term (current) use of non-steroidal anti-inflammatories (NSAID); Z87.442 Personal history of urinary calculi
CPT/HCPCS: 74176; 80048; 81001; 81025; 85025; 96361; 96374; 96375; 99283; A4216; J2405

== ENCOUNTER 2022-01-11 12:24 | Emergency (ER) | payer MEDICAID, SELFPAY ==
[2022-01-11 12:24] VITALS: BP 145/97; PULSE 91; RESP 16; TEMP 36.7; O2SAT 98; BMI 33.7
--- NOTE | 2022-01-11 12:26 | RAD_ITS ---
STUDY: X-RAY CHEST REASON FOR EXAM: Female, 46 years old. Chest pain TECHNIQUE: Single AP portable view of the chest. COMPARISON: Comparison is made with prior study dated 09/27/2013. FINDINGS: The lungs are clear and expanded. There is no demonstrated pleural abnormality. Normal size heart. Normal mediastinum and aylin. Normal visualized pulmonary arteries. Normal visualized aortic arch and descending thoracic aorta. There are diffuse degenerative changes of the visualized thoracic spine. Normal visualized ribs, clavicles, and shoulders. There is no demonstrated abnormality of the visualized soft tissue structures of the upper abdomen. RAD/Chest 1 View (Portable) IMPRESSION: No acute abnormality is seen. Electronically Signed: Jah Reeves MD at 13:01 EDT ,
--- NOTE | 2022-01-11 12:26 | EKG12_ITS ---
Test Reason : CP Blood Pressure : / mmHG Vent. Rate : 076 BPM Atrial Rate : 076 BPM P-R Int : 156 ms QRS Dur : 094 ms QT Int : 390 ms P-R-T Axes : 041 -09 021 degrees QTc Int : 438 ms Normal sinus rhythm Normal ECG Confirmed by KOBE FAUST, YASEMIN ([id number]), legal editor VÍCTOR SMITH ([id number]) on 01/13/2022 8:46:25 AM Referred By: BIBI/WILLY Confirmed By:YASEMIN BULLOCK MD
[2022-01-11 13:06] LABS: Absolute Lymphocyte Count 1.97 X10^3/uL (0.83-4.51); Absolute Neutrophil Count 7.1 X10^3/uL (2.0-7.7); Basophil# 0.04 X10^3/uL; Basophil% 0.4 % (0-1); Eosinophil# 0.17 X10^3/uL; Eosinophils% 1.7 % (0-5); Hematocrit 40.2 % (37-47); Hemoglobin 13.6 g/dL (12.0-15.0); Lymphocyte # 1.97 X10^3/ul (0.83-4.51); Mean Corp Hgb Conc 33.8 g/dL (32-36); Mean Corpuscular Hgb 29.4 pg (27.0-32.0); Mean Platelet Vol. 9.5 fl (6.2-12.0); Monocyte# 0.54 X10^3/uL; Monocyte% 5.5 % (0-10); NRBC Flagged by Analyzer 0 % (0-5); Neutrophil # 7.09 X10^3/uL (2.7-7.7); Neutrophil % 71.8 % (47-70); Platelet Count 284 K/mm3 (150-450); RBC Distribution Width CV 12.7 % (11.6-14.6); RBC Distribution Width SD 40.1 fl (35.1-43.9); Red Blood Count 4.62 M/mm3 (4.2-5.4); White Blood Count 9.9 K/mm3 (4.4-11.0)
[2022-01-11 13:24] LABS: Anion Gap 7 (5-15); BUN 14 mg/dL (7-18); BUN/Creat Ratio 15.3 RATIO (10-20); Calcium,Total 9.5 mg/dL (8.5-10.1); Chloride 101 mmol/L (98-107); Creatinine, Serum 0.92 mg/dL (0.55-1.02); EST Glomerular Filtration Rate 71 mL/min (>60); Est Glom Filt Rate - Afr Amer 85 mL/min (>60); Estimated Creatinine Clearance 64.55 ml/min; Glucose 330 mg/dL (74-106); Potassium 4.2 mmol/L (3.5-5.1); Sodium Level 134 mmol/L (136-145); Troponin-I HS < 3 pg/mL (3.0-54.0)
--- NOTE | 2022-01-11 13:25 | ED.VIS.CHEST ---
HPI History of Present Illness Chief Complaint: Chest Pain Informant: patient Onset/Context/Timing Onset: Today and Hours (3) Activity at onset: gradual Timing: Continuous Quality: Positive for Pressure Location: Substernal Worsened By: Movement of Torso and Breathing Relieved By: Nothing Associated Symptoms: Positive for Nausea, Diaphoresis, Dyspnea and Palpitations; Negative for Vomiting, Cough, Fever, Lightheadedness or Acid Reflux Narrative Narrative: Patient presents with chest pain that began approximately 3 hours prior to arrival. Patient states it has been constant. Patient states it is over the substernal area. Patient describes the pain as pressure. Patient states it radiates into her jaw. Patient states it is worse with bending and deep breathing. Patient states nothing seems to help with it. Patient admits to nausea but denies any vomiting. Patient admits to some diaphoresis and shortness of breath with the pain. Patient also admits to some palpitations. Patient states that she was told that she may have diabetes. Patient states she has a family history of mother with coronary artery disease at a young age. CVD Risk Factors: Positive for Diabetes (Questionable) and Family History 1' </=55; Negative for Hypertension, Hypercholesterolemia or Smoking PE Risk Factors: Negative for Recent Travel/Surgery, Recent Immobilization, Prior DVT or PE, Cancer or OCP + Smoking + >/=35 PFSH PFSH Medical History Diabetes Allergy/AdvReac Type Severity Reaction Status Date / Time iodine Allergy Food Verified 01/11/22 12:24 Allergy shellfish derived Allergy Hives Verified 01/11/22 12:24 Social History Smoking Status: Never smoker ROS ROS ED Constitutional Constitutional ED: Denies chills or fever(s) Eyes Eyes: Denies blurry vision or change in vision ENT ENT ED: Reports rhinorrhea; Denies sore throat Cardiovascular Cardiovascular: Reports chest pain and palpitations Respiratory/Chest Respiratory/Chest: Reports dyspnea; Denies cough Gastrointestinal Gastrointestinal: Reports nausea; Denies abdominal pain or vomiting Genitourinary Genitourinary ED: Denies dysuria or hematuria Musculoskeletal Musculoskeletal: Denies back pain or neck pain Integumentary Denies abscess or rash Neurologic Neurologic: Denies headache(s) or weakness Allergic/Immunologic Allergic/Immunologic ED: Denies mouth swelling or urticaria EXAM Physical Exam Const Vital Signs: 01/11/22 12:24 01/11/22 13:05 01/11/22 13:58 Temperature 98.1 F Temperature Source Temporal Pulse Rate 91 78 Respiratory Rate 16 20 H Blood Pressure 145/97 H 129/84 H Blood Pressure Mean 113 99 Pulse Ox 98 100 Oxygen Delivery Method Room Air Room Air Room Air Positive well nourished, well developed and obese General Appearance ED: well developed and NAD Nutritional Appearance: obese HEENT normocephalic and atraumatic Eyes PERRL and EOMs intact bilaterally Neck supple and no JVD Chest Wall Chest: tenderness sternum Resp normal respiratory effort and clear to auscultation bilaterally Effort and Inspection: Negative for respiratory distress Cardio regular rate, regular rhythm and no murmurs GI normal to inspection, nondistended, normoactive bowel sounds, soft to palpation, non-tender and non-distended Extremity normal to inspection General Extremety ED: Negative for edema or tenderness General Extremity: Negative for edema Neuro oriented x3, CN's II-XII intact bilaterally and no sensory deficits noted Sensorium / Orientation: awake and alert Motor Exam: strength 5/5 throughout Psych mental status grossly normal Heart Score History: Slightly/Non-Suspicious ECG: Normal Age: </= 45 years Risk Factors: 1 or 2 Risk Factors Troponin: </= Normal Limit Score: 1 MDM MDM MDM Narrative Medical decision making narrative: Patient was given aspirin. EKG was obtained. On my interpretation, it showed a normal sinus rhythm with a rate of 74. MI interval, QRS interval, and QTc intervals were all normal. [place] was normal. There are no acute ST or T wave changes. Portable 1 view chest x-ray was obtained. On my interpretation, lung mcnulty are clear. There is normal cardiac silhouette. Bony thorax is normal. There is no acute process noted. Radiologist also interpreted the x-ray and agrees. CBC was within normal limits. Basic metabolic profile was within normal limits except for an elevated glucose of 330. Anion gap was normal. Initial high-sensitivity troponin was less than 3. 2-hour repeat high-sensitivity troponin was also less than 3. Patient was advised of her findings. Patient has a HEART score of 1. Patient was advised that this is low risk for acute cardiac event. Patient was instructed to follow-up with her primary care physician in 5 to 7 days. Patient understood and was agreeable with the plan. All questions were answered. Lab Data Attestation: I reviewed the patient's lab results. Labs: Laboratory Results - last 24 hr 01/11/22 01/11/22 01/11/22 13:00 13:00 14:57 WBC 9.9 RBC 4.62 Hgb 13.6 Hct 40.2 MCV 87.0 MCH 29.4 MCHC 33.8 RDW Std Deviation 40.1 RDW Coeff of Alejandra 12.7 Plt Count 284 MPV 9.5 Immature Gran % (Auto) 0.600 Neut % (Auto) 71.8 H Lymph % (Auto) 20.0 [place] % (Auto) 5.5 Eos % (Auto) 1.7 Baso % (Auto) 0.4 Absolute Neuts (auto) 7.1 Absolute Lymphs (auto) 1.97 Nucleated RBC % 0 Sodium 134 L Potassium 4.2 Chloride 101 Carbon Dioxide 26.0 Anion Gap 7 BUN 14 Creatinine 0.92 Estim Creat Clear Calc 64.55 Est GFR (MDRD) Af Amer 85 Est GFR (MDRD) Non-Af 71 BUN/Creatinine Ratio 15.3 Glucose 330 H Calcium 9.5 Troponin I High Sens < 3 L < 3 L Radiography Chest X-Ray - ED: 1 View, Read by ED Physician, Read by Radiologist and No Acute Disease Diagnostic Testing: Clinical Impression(s) from Imaging Studies Chest X-Ray 01/11/22 12:26 IMPRESSION: No acute abnormality is seen. Electronically Signed: Jah Reeves MD at 13:01 EDT , Discharge Plan Triage Chief Complaint: Chest Pain ED Provider: Otto Wilkinson Dx/Rx/DC Orders Clinical Impression: Chest pain of uncertain etiology, Hyperglycemia Instructions: ED Chest Pain, Uncertain Cause Primary Care Provider: Care Physician,No Primary Referrals: Edmundo Kendall MD [STAFF PHYSICIAN] - 5-7 Days Care Physician,No Primary [Primary Care Provider] - Disposition Disposition: Home, Self Care
[2022-01-11] MEDS: Aspirin 81 MG TAB.CHEW 324 MG PO (13:56)
[2022-01-11 13:58] VITALS: BP 129/84; PULSE 78; RESP 20; O2SAT 100
[2022-01-11 15:17] LABS: Troponin-I HS < 3 pg/mL (3.0-54.0)
[2022-01-11 16:09] VITALS: BP 121/78; PULSE 72; RESP 15; RESP 18; O2SAT 100
== END 2022-01-11 16:10 | disposition home or self-care (01) ==
PROVIDERS: Emergency Provider Emergency Medicine; Visit Provider Emergency Medicine
DX: R07.9 Chest pain, unspecified (principal); E11.65 Type 2 diabetes mellitus with hyperglycemia; R06.02 Shortness of breath; R11.0 Nausea; R00.2 Palpitations; R06.00 Dyspnea, unspecified; E66.9 Obesity, unspecified
CPT/HCPCS: 71045; 80048; 84484; 85025; 93005; 99285; A4216

== ENCOUNTER 2022-11-28 21:46 | Emergency (ER) | payer MEDICAID, SELFPAY ==
[2022-11-28 21:47] VITALS: BP 139/93; PULSE 98; RESP 18; TEMP 35.5; O2SAT 99; BMI 33.6
--- NOTE | 2022-11-28 21:54 | EX.ED.DYSGE1 ---
HPI History of Present Illness Chief Complaint: Abscess Informant: patient Onset/Context/Timing Onset: Days (3) Context: Gradual Onset Timing: Continuous Quality: sore Location: pubic area Current Severity: Moderate Maximum Severity: Moderate Worsened by: palpation Relieved by: nothing Associated Symptoms Associated Symptoms: no systemic sx Narrative Narrative: Tender swollen area in her pubic area has spontaneously started, has worsened. She has had some before but never to this size, severity, and never needed to have any drained. She denies any systemic symptoms. She is been trying to put some salve on an unknown because of that if there is been any spontaneous drainage. [facility] Medical History Diabetes Home Medications sulfamethoxazole 800 mg-trimethoprim 160 mg tablet 1 tab PO BID #20 TABLETS 11/28/22 [Rx Last Taken Unknown] Allergy/AdvReac Type Severity Reaction Status Date / Time iodine Allergy Food Verified 11/28/22 21:47 Allergy shellfish derived Allergy Hives Verified 11/28/22 21:47 Social History Smoking Status: Never smoker ROS ROS ED ROS Narrative Other than below, ROS unremarkable Constitutional Constitutional ED: Denies chills or fever(s) Integumentary Reports abscess; Denies rash EXAM Physical Exam Const Vital Signs: 11/28/22 21:47 11/28/22 22:27 Temperature 96 F L 97.7 F L Temperature Source Temporal Oral Pulse Rate 98 95 Respiratory Rate 18 16 Blood Pressure 139/93 H 131/81 H Blood Pressure Mean 108 97 Pulse Ox 99 98 Oxygen Delivery Method Room Air Room Air Positive well nourished General Appearance ED: NAD Neck supple Resp normal respiratory effort Effort and Inspection: able to speak in complete sentences Extremity normal to inspection Neuro oriented x3, CN's II-XII intact bilaterally, no sensory deficits noted and gait normal Motor Exam: strength 5/5 throughout Psych mental status grossly normal Skin Skin Narrative: 2-3 cm pointing indurated erythematous very tender abscess with spontaneous small amount of purulent drainage in the mons pubis, right side. Does not involve the labia. Is above the inguinal crease on the mons. MDM MDM MDM Narrative Medical decision making narrative: See procedure note, incision and drainage performed in emergency department and it was uncomplicated. Given appropriate discharge instructions and antibiotics started on Bactrim. She is well-appearing I do not think she needs further work-up at this time. Procedures Other Procedures Procedure(s): Complex incision and drainage cutaneous abscess mons pubis: After informed consent, sterile prep and drape with chlorhexidine, local anesthesia with 4 cc plain 1% lidocaine, incised with a #10 blade centrally, moderate amount of purulent material expressed, I deloculated, irrigated the cavity, and packed it with iodoform half-inch gauze, which was the only strip gauze available to me at the time. Dressed with bacitracin, no complications tolerated well. Discharge Plan Triage Chief Complaint: Abscess ED Provider: Keenan Truong Dx/Rx/DC Orders Clinical Impression: Cutaneous abscess of abdominal wall Instructions: ED Abscess Incision And Drainage Prescriptions: New sulfamethoxazole-trimethoprim [sulfamethoxazole-trimethoprim] 800-160 mg tablet 1 tab PO BID Qty: 20 0RF Primary Care Provider: Care Physician,No Primary Referrals: Care Physician,No Primary [Primary Care Provider] - Doctor,Your [Non-Staff] - 3-5 Days if not improving (or ER) Activity Restrictions/Additional Instructions: Try to leave packing intact for 48 hours and then remove and discard. If it falls out earlier than that, do not worry about it, just continue dressing changes. If there is any water that gets into the area after a shower or what not, you may gently apply pressure to the surrounding area to express it prior to a new dressing change. Antibiotic ointment on the area with these dressing changes okay as well. If you are concerned about it recurring or getting worse, return to the ER for reevaluation. Disposition Disposition: Home, Self Care
[2022-11-28] MEDS: Smz/Tmp Ds Tablet 1 TABLET PO (22:03)
[2022-11-28] MEDS: Lidocaine 1% (20 ml mdv) 20 ML Vial INFILT (22:04)
[2022-11-28 22:27] VITALS: BP 131/81; PULSE 95; RESP 16; TEMP 36.5; O2SAT 98
[2022-11-28 23:54] VITALS: PULSE 88; TEMP 36.5; O2SAT 100
== END 2022-11-28 23:56 | disposition home or self-care (01) ==
PROVIDERS: Emergency Provider Emergency Medicine; Visit Provider Emergency Medicine
DX: L02.215 Cutaneous abscess of perineum (principal); E11.9 Type 2 diabetes mellitus without complications
CPT/HCPCS: 56405; 10060; 99283